=== PATIENT | male | born 2000 | race Caucasian/White ===

== ENCOUNTER 2018-08-01 01:47 | Day surgery (SDC) | payer SELFPAY ==
[2018-08-01] MEDS ORDERED: HYOSCYAMINE SULFATE ODT 0.125 MG TAB.SUBL SL ONE (01:54)
--- NOTE | 2018-08-01 01:59 | Emergency Department Record ---
History of Present Illness - General Chief Complaint: Abdominal Pain Stated Complaint: ABD PAIN Time Seen by Provider: 08/01/18 01:50 Source: Patient Mode of Arrival: Ambulatory Limitations: No limitations - History of Present Illness Initial Comments: 18 yo male presents to ED for evaluation of diffuse abdominal pain symptoms and vomiting x 1 that began this evening. Patient denies fevers, chills, loose stools, or change in stools. Patient denies testicular pain or penile discharge. Patient denies health problems at his baseline, and denies previous abdominal surgery. MD Complaint: Abdominal pain Onset/Timin -: Hour(s) Location: Diffuse Radiation: None Migration to: No migration Severity: Moderate Quality: Cramping Consistency: Constant Improves With: Nothing Worsens With: Nothing Associated Symptoms: Denies other symptoms - Related Data Home Medications Medication Instructions Recorded Confirmed Last Taken No Home Med [NO HOME MEDS] 08/01/18 08/01/18 Unknown Allergies Allergy/AdvReac Type Severity Reaction Status Date / Time No Known Drug Allergies Allergy Verified 01/20/15 18:15 Review of Systems Constitutional: Denies: Chills, Fever, Night sweats Eyes: Denies: Eye discharge, Eye pain ENT: Denies: Congestion, Ear pain, Epistaxis Respiratory: Denies: Cough, Dyspnea Cardiovascular: Denies: Chest pain, Dyspnea on exertion Endocrine: Denies: Fatigue, Heat or cold intolerance Gastrointestinal: Reports: Abdominal pain, Vomiting. Denies: Constipation, Nausea Genitourinary: Denies: Testicular pain, Testicular mass Musculoskeletal: Denies: Arthralgia, Back pain Skin: Denies: Bruising, Change in color Neurological: Denies: Abnormal gait, Confusion, Headache, Seizure Psychiatric: Denies: Anxiety Hematological/Lymphatic: Denies: Anemia, Blood Clots Physical Exam - General General Appearance: Alert, Oriented x3, Cooperative, Mild distress Limitations: No limitations - Head Head exam: Atraumatic, Normocephalic, Normal inspection Head exam detail: negative: Abrasion, Contusion, Izaguirre's sign, General tenderness, Hematoma, Laceration - Eye Eye exam: Normal appearance. negative: Conjunctival injection, Periorbital swelling, Periorbital tenderness, Scleral icterus - ENT Ear exam: negative: Auricular hematoma, Auricular trauma Nasal Exam: negative: Active bleeding, Discharge, Dried blood, Foreign body Mouth exam: negative: Drooling, Laceration, Muffled voice, Tongue elevation - Neck Neck exam: Normal inspection. negative: Meningismus, Tenderness - Respiratory Respiratory exam: Normal lung sounds bilaterally. negative: Rales, Respiratory distress, Rhonchi - Cardiovascular Cardiovascular Exam: Regular rate, Normal rhythm, Normal heart sounds - GI/Abdominal GI/Abdominal exam: Soft, Tenderness (Mild, diffuse TTP on examination.). negative: Rebound, Rigid - Rectal Rectal exam: Deferred - exam: Deferred - Extremities Extremities exam: Normal inspection. negative: Calf tenderness, Pedal edema, Tenderness - Back Back exam: Denies: CVA tenderness (R), CVA tenderness (L) - Neurological Neurological exam: Alert, Normal gait, Oriented X3 - Psychiatric Psychiatric exam: Normal affect, Normal mood - Skin Skin exam: Normal color. negative: Abrasion Type of lesion: negative: abrasion Course Vital Signs 08/01/18 01:52 Temperature 98.3 F Pulse Rate [ 80 Pulse Ox Probe] Respiratory 18 Rate Blood Pressure 126/71 [Left Arm] Pulse Ox 98 - Reevaluation(s) Reevaluation #1: 08/01/18 01:58 No history of testicular pain on examination. Will obtain laboratory studies, obtain CT imaging of the abdomen and pelvis, administer levsin, and reassess. Reevaluation #2: 08/01/18 02:27 Laboratory studies were reviewed, WBC 14.9 with 81% Neutrophils. Labs are otherwise grossly unremarkable for an acute process. Patient is going for CT imaging at this time. Reevaluation #3: 08/01/18 04:22 CT Abdomen and Pelvis: Findings appear c/w acute appendicitis with moderate FF Dr. Singh paged for consultation. Invanz 1 gram ordered IV. Reevaluation #4: 08/01/18 04:24 Case was discussed with Dr. Singh, will admit for surgery later today. Medical Decision Making - Lab Data Result diagrams: 08/01/18 02:00 08/01/18 02:00 Disposition Disposition: Admit Clinical Impression: Acute appendicitis Qualifiers: Acute appendicitis type: unspecified acute appendicitis type Qualified Code(s) : K35.80 - Unspecified acute appendicitis Disposition: Still a Patient at [facility] Decision to Admit: Admit from ER Decision to Admit Date: 08/01/18 Decision to Admit Time: 04:24 Condition: (2) Stable Forms: Patient Portal Access Time of Disposition: 04:25 Quality - Quality Measures Quality Measures: N/A - Blood Pressure Screening Does Patient Have Any of the Following: No Blood Pressure Classification: Pre-Hypertensive BP Reading Systolic Measurement: 126 Diastolic Measurement: 71 Screening for High Blood Pressure: < Pre-Hypertensive BP, F/U Documented > [ [id number]] Pre-Hypertensive Follow-up Interventions: Referral to alternative/primary care provider.
[2018-08-01] MEDS ORDERED: ONDANSETRON HCL IV 4 MG/2 ML VIAL IVP ONE (02:01)
[2018-08-01 02:05] LABS: BASO % 0.1 % (0-6); EOS % 0.3 % (0-6); HEMATOCRIT 40.2 % (42.0-52.0); MEAN CELL VOLUME 91.2 fl (81-97); MEAN CORPUSCULAR HEMOGLOBIN 31.7 pg (27-33); MEAN CORPUSCULAR HGB CONC 34.8 g/dl (32-36); MEAN PLATELET VOLUME 9.3 fl (7.4-10.4); MONO % 8.6 % (0-9); PLATELET COUNT 211 K/uL (130-400); RED BLOOD COUNT 4.41 M/uL (4.40-5.70); RED CELL DISTRIBUTION WIDTH 11.8 % (11.5-14.5); WHITE BLOOD COUNT W/O DIFF 14.9 K/uL (4.2-12.2)
[2018-08-01] MEDS ORDERED: 0.9 % SODIUM CHLORIDE 1000ML 1,000 ML IV SCH (02:15)
[2018-08-01 02:20] LABS: BLOOD UREA NITROGEN 11 mg/dL (6-20); CREATININE 0.8 mg/dL (0.7-1.2); EST GLOMERULAR FILTRATION RATE > 60 mL/min
[2018-08-01 02:21] LABS: TOTAL PROTEIN 7.7 g/dL (6.6-8.7)
[2018-08-01 02:23] LABS: GLUCOSE,RANDOM 117 mg/dL (74-109)
[2018-08-01 02:26] LABS: ALB/GLOB RATIO 1.7 (1.1-1.8); ALBUMIN 4.8 g/dL (4.0-5.0); ALKALINE PHOSPHATASE 53 U/L (55-149); ALT/SGPT 22 U/L (<41); AST/SGOT 18 U/L (10.0-50.0); LIPASE 31 U/L (13-60)
[2018-08-01] MEDS ORDERED: KETOROLAC 30 MG/ML VIAL IVP ONE ×2 (03:13→20:18)
[2018-08-01 03:16] LABS: URINE APPEARANCE CLEAR; URINE BILIRUBIN NEGATIVE (NEGATIVE); URINE BLOOD NEGATIVE (NEGATIVE); URINE COLOR YELLOW; URINE GLUCOSE (UA) NEGATIVE (NEGATIVE); URINE KETONE 15 mg/dL (NEGATIVE); URINE LEUKOCYTE ESTERASE NEGATIVE (NEGATIVE); URINE NITRITE NEGATIVE (NEGATIVE); URINE PROTEIN NEGATIVE (NEGATIVE); URINE UROBILINOGEN 0.2 E.U./dL (0.20 - 1.00)
[2018-08-01] MEDS ORDERED: ERTAPENEM SODIUM 1 G in 0.9 % SODIUM CHLORIDE 100ML 100 ML IVPB ONE (04:21)
[2018-08-01] MEDS ORDERED: ERTAPENEM SODIUM 1 G in 0.9 % SODIUM CHLORIDE 100ML 100 ML IVPB SCH (06:10)
[2018-08-01] MEDS ORDERED: 0.9 % SODIUM CHLORIDE 1000ML 1,000 ML IV PRN (06:10)
[2018-08-01] MEDS ORDERED: ONDANSETRON HCL IV 4 MG/2 ML VIAL IVP PRN (06:10)
[2018-08-01] MEDS: MORPHINE SULFATE 10 MG/ML VIAL IVP SCH ×3 (06:44→14:48)
--- NOTE | 2018-08-01 09:51 | CT SCAN REPORT ---
EXAM: CT SCAN OF THE ABDOMEN AND PELVIS WITH CONTRAST HISTORY: MID ABDOMINAL PAIN WITH NAUSEA AND VOMITING. TECHNIQUE: Standard CT imaging of the abdomen and pelvis was performed with intravenous contrast. 95 ml of Omnipaque 300 were administered. Comparison: None. FINDINGS: The lung bases are clear. The liver, gallbladder, biliary tree, pancreas, spleen, adrenal glands, kidneys, and ureters are normal. The stomach and epigastrium are normal. The appendix is dilated and fluid filled. The appendix measures up to 1.3 cm in diameter. Small appendicolith's are present within the lumen. There is adjacent fluid within the pelvis with no defined abscess or pneumoperitoneum. The fluid may be reactive in nature. No discreet rupture is identified. The remaining large and small bowel loops are normal. The urinary bladder is normal. There are no acute osseous abnormalities. IMPRESSION: 1. ACUTE APPENDICITIS WITH MODERATE ADJACENT FREE FLUID. THERE IS NO ABSCESS OR PNEUMOPERITONEUM. 2. THE REMAINING PORTIONS OF THE ABDOMEN AND PELVIS ARE NORMAL. JOB NUMBER: [id number] [facility]
[2018-08-01] MEDS ORDERED: RINGERS SOLUTION,LACTATED 1,000 ML IV ONE (11:37)
[2018-08-01] MEDS ORDERED: ACETAMINOPHEN 1,000 MG/100 ML BTL IV ONE (13:30)
[2018-08-01] MEDS ORDERED: HYDROMORPHONE HCL 2 MG/ML VIAL IM PRN (17:41)
[2018-08-01] MEDS ORDERED: METOCLOPRAMIDE HCL 10 MG/2 ML VIAL IV PRN (17:41)
[2018-08-01] MEDS ORDERED: HYDROCODONE/APAP 5/325MG TABLET PO PRN ×2 (17:45→17:50)
[2018-08-01] MEDS ORDERED: TRAMADOL HCL 50 MG TABLET PO PRN (17:46)
[2018-08-01] MEDS ORDERED: SEVOFLURANE 250 ML INH ONE (20:18)
[2018-08-01] MEDS ORDERED: GLYCOPYRROLATE 0.2 MG/ML ML IV ONE (20:18)
[2018-08-01] MEDS ORDERED: MIDAZOLAM HCL 2MG/2ML VIAL IV ONE (20:18)
[2018-08-01] MEDS ORDERED: SUCCINYLCHOLINE 20 MG/ML 10ML IVP ONE (20:18)
[2018-08-01] MEDS ORDERED: NEOSTIGMINE 1 MG/1 ML,10ML VIAL IV ONE (20:18)
[2018-08-01] MEDS ORDERED: LIDOCAINE 2% MDV (20MG/ML) 20ML VIAL IV ONE (20:18)
[2018-08-01] MEDS ORDERED: FENTANYL PF 100MCG/2ML VIAL IV ONE (20:18)
[2018-08-01] MEDS ORDERED: BUPIVACAINE 0.25% W/EPI MPF 30ML VIAL IVP ONE (20:18)
[2018-08-01] MEDS ORDERED: ROCURONIUM BROMIDE 50MG/5ML VIAL IV ONE (20:18)
[2018-08-01] MEDS ORDERED: PROPOFOL 10 MG/ML VIAL IV ONE (20:18)
[2018-08-02] MEDS ORDERED: ERTAPENEM SODIUM 1 G in 0.9 % SODIUM CHLORIDE 100ML 100 ML IVPB SCH (05:00)
--- NOTE | 2018-08-02 10:50 | Operative Note ---
DATE OF SURGERY: 08/01/2018 Surgeon: Selvin Singh D.O. Referring physician: Unknown. PREOPERATIVE DIAGNOSIS: Acute appendicitis. POSTOPERATIVE DIAGNOSIS: Acute appendicitis. OPERATION: Laparoscopic appendectomy. Anesthesia: General. Indication: The patient is a 18-year-old male who had recent diagnosis of acute appendicitis. PROCEDURE: He was brought to the operating room and placed in the supine position. General anesthesia was administered per the Department of Anesthesia. The patient's left arm was tucked to his side. His abdomen was shaved of hair and prepped and draped in sterile fashion. At this time, adequate timeout was performed. He did receive preoperative antibiotic as well as DVT prophylaxis. At this time, the infraumbilical region was anesthetized with a total of 5 mL of 0.25% Sensorcaine with epinephrine. A 2 cm infraumbilical incision was made. This was carried down to the anterior rectus fascia, this is incised. Kimi clamps were placed on the fascial edges and brought up into the wound. Stay stitches of 0 Vicryl placed. The posterior rectus sheath was identified and incised and the peritoneal cavity was entered bluntly. At this time, a 10 mm blunt Ronnie port was placed and adequate pneumoperitoneum was established. Under direct visualization, an additional 5 mm right subcostal and a 5 mm suprapubic port were placed. The patient was rotated into a steep Trendelenburg position and rotated to the left. General exam was done. There was some purulent fluid in the pelvis, which was suctioned and irrigated free. The appendix was low in the pelvis. This was lifted anteriorly. The mesoappendix was taken down serially with the Brian harmonic. At this time, the appendix was transected from the base of the cecum with the Endo SUSANNA stapling device. This was placed into an EndoCatch bag and brought out through the umbilical port. The right lower quadrant and pelvis were irrigated with 500 mL of sterile saline and aspirated until clear. The staple line was intact. There was no bleeding, no leaking, and no purulent fluid noted. The patient was leveled out. The pneumoperitoneum was released. All ports removed, and the fascia was closed with 0 Vicryl in a [id number] fashion. The skin of all 3 ports closed with 4-0 Vicryl. He was taken to the recovery room in satisfactory condition. FINDINGS AT THE TIME OF SURGERY: Acute appendicitis without abscess or rupture. PARVEEND
--- NOTE | 2018-08-02 10:50 | History and Physical Report ---
DATE OF ADMISSION: 08/01/2018 ADMISSION DIAGNOSIS: Acute appendicitis. HISTORY OF PRESENT ILLNESS: The patient is a 18-year-old male who has had a 24-hour history of abdominal pain. This is periumbilical and settled in his right lower quadrant. He was seen at [facility] where workup was done. This did show findings consistent with acute appendicitis. PAST MEDICAL HISTORY: Negative for any significant illnesses. PAST SURGICAL HISTORY: Negative. CURRENT MEDICATIONS: None. ALLERGIES: None. SOCIAL HISTORY: He denies any tobacco or alcohol usage. PHYSICAL EXAMINATION: VITAL SIGNS: Stable. He is afebrile. HEART: Regular. LUNGS: Clear. ABDOMEN: Soft. There is right lower quadrant and suprapubic tenderness. EXTREMITIES: No trace of edema. RADIOGRAPHIC DATA: Imaging studies reviewed. IMPRESSION: Acute appendicitis. PLAN: We did discuss appendectomy. Risks, benefits, and alternatives were discussed. Risks include bleeding, infection, postop abscess formation. He understands this fully. This will be scheduled for today. JANICE
== END 2018-08-01 20:19 | disposition home or self-care (01) ==
LOC: ER 01:47 → SUR 04:41 → MEDSURG 04:41 → MERGE 04:41 → UNDOADMIN 04:46 → MEDSURG 04:46 → UNDODISIN 20:19 → SUR 20:19
PROVIDERS: ATTEND Surgery
DX: K35.80 Unspecified acute appendicitis (principal)
CPT/HCPCS: 44970; 00840; 99285 ×2; 96374; 96375; 83690; 85025; 80053; 81003; 74177; Q9967; J1335; J1980; J1885; J2405; J3010; J2270; J0330; J2710; J7030; J7120